=== PATIENT | male | born 1965 | race Caucasian/White ===

== ENCOUNTER → 2023-12-05 | Outpatient (CLI) | payer OTHER | LOC: RAD 14:08 | DX: M19.012 Primary osteoarthritis, left shoulder (principal) ==

== ENCOUNTER 2024-03-13 22:29 | Emergency (ER) | payer OTHER ==
[~2024-03-13] VITALS: Ht 175.3 cm; Wt 81.8 kg
[2024-03-13] MEDS ORDERED: OXYCODONE HCL20 M1 PO (23:02)
[2024-03-13] MEDS ORDERED: DULOXETINE60 MG PO (23:02)
[2024-03-13] MEDS ORDERED: RITALIN 20M20 MG/TAB PO (23:02)
[2024-03-13] MEDS ORDERED: SINEQUAN 1010 MG/CAP PO (23:02)
[2024-03-13] MEDS ORDERED: FOLIC ACID1 MG (23:03)
[2024-03-13] MEDS ORDERED: ROSUVASTATIN CA20 MG PO (23:03)
[2024-03-13] MEDS ORDERED: ASPIRIN E.C. 8181 MG (23:03)
[2024-03-13 23:12] LABS: BASO # 0.01 K/mm3 (0.02-0.10); EOS # 0.12 K/mm3 (0.04-0.40); EOS % 2.4 % (0.0-4.0); HEMATOCRIT 37.4 % (42.0-52.0); HEMOGLOBIN 12.9 g/dL (13.5-18.0); LYMPH# 1.21 K/mm3 (1.50-4.00); MEAN CELL VOLUME 96 fl (78-100); MEAN CORPUSCULAR HEMOGLOBIN 33 pg (27-31); MEAN CORPUSCULAR HGB CONC 35 g/dL (33-37); MEAN PLATELET VOLUME 8.6 fl (7.4-10.4); MONO # 0.64 K/mm3 (0.20-0.80); NEU # 3.03 K/mm3 (1.40-6.50); PLATELET COUNT 166 K/mm3 (130-400); RED BLOOD COUNT 3.88 M/mm3 (4.20-5.60)
[2024-03-13 23:20] LABS: ALBUMIN 3.3 g/dL (3.5-5.0)
[2024-03-13 23:21] LABS: CALCIUM 8.8 mg/dL (8.3-10.5)
[2024-03-13 23:22] LABS: TOTAL PROTEIN 6.7 g/dL (6.4-8.3)
[2024-03-13 23:24] LABS: TOTAL BILIRUBIN 0.9 mg/dL (0.2-1.2)
[2024-03-13 23:36] LABS: URINE APPEARANCE CLOUDY (CLEAR)
[2024-03-13 23:37] LABS: URINE GLUCOSE TRACE (NEGATIVE)
[2024-03-13 23:38] LABS: URINE BILIRUBIN 2+ (NEGATIVE); URINE BLOOD NEGATIVE (NEGATIVE); URINE KETONE TRACE (NEGATIVE); URINE PROTEIN(semi-quant) 3+ (NEGATIVE)
[2024-03-13 23:39] LABS: URINE COLOR AMBER (YELLOW); URINE NITRATE POSITIVE (NEGATIVE)
[2024-03-13 23:45] LABS: URINE LEUKOCYTE ESTERASE NEGATIVE (NEGATIVE)
[2024-03-13 23:46] LABS: URINE MUCUS PRESENT (NOT PRESENT)
[2024-03-14] MEDS ORDERED: levETIRAcetam 1,000 MG in Syringe 1 EACH IV ONE (00:45)
[2024-03-14] MEDS ORDERED: Morphine 4 MG/ML VIAL IV PRN (01:30)
[2024-03-14] MEDS ORDERED: NS 1,000 ML IV SCH (01:30)
[2024-03-14] MEDS ORDERED: Iohexol 350 - 100 ML VIAL IV ONE (03:17)
[2024-03-14] MEDS ORDERED: Ondansetron 4 MG/2 ML VIAL IV ONE (03:30)
[2024-03-14 10:10] VITALS: BP 159/102
== END 2024-03-14 08:28 | disposition short-term general hospital (02) ==
LOC: ED 22:29
PROVIDERS: Family Medicine
DX: R47.1 Dysarthria and anarthria (principal); R56.9 Unspecified convulsions; G89.29 Other chronic pain; K59.00 Constipation, unspecified; Z79.82 Long term (current) use of aspirin; Z79.899 Other long term (current) drug therapy; Z79.891 Long term (current) use of opiate analgesic
CPT/HCPCS: J1953; J2270; J2405; J7030; Q9967

== ENCOUNTER → 2024-04-22 | Outpatient (CLI) | payer OTHER ==
[~2024-04-22] MED LIST: ASPIRIN E.C. 8181 MG; DULOXETINE60 MG PO; FOLIC ACID1 MG; OXYCODONE HCL20 M1 PO; RITALIN 20M20 MG/TAB PO; ROSUVASTATIN CA20 MG PO; SINEQUAN 1010 MG/CAP PO
[2024-04-22 16:33] LABS: HEMATOCRIT 36.2 % (42.0-52.0); HEMOGLOBIN 11.2 g/dL (13.5-18.0); MEAN PLATELET VOLUME 9.9 fl (7.4-10.4); RED BLOOD COUNT 3.2 M/mm3 (4.20-5.60); WHITE BLOOD COUNT 8.7 K/mm3 (4.8-10.8)
[2024-04-22 16:45] LABS: ALBUMIN 2.9 g/dL (3.5-5.0)
[2024-04-22 16:48] LABS: TOTAL PROTEIN 6.4 g/dL (6.4-8.3)
[2024-04-22 16:49] LABS: TOTAL BILIRUBIN 0.3 mg/dL (0.2-1.2)
== END ==
LOC: LAB 16:14
PROVIDERS: Family Medicine
DX: R10.13 Epigastric pain (principal); F10.988 Alcohol use, unspecified with other alcohol-induced disorder

== ENCOUNTER → 2024-05-25 | Outpatient (CLI) | payer OTHER ==
[~2024-05-25] MED LIST changes: +Gadoterate 20 ML VIAL IV ONE
== END ==
LOC: RAD 11:52
DX: N28.89 Other specified disorders of kidney and ureter (principal); K86.2 Cyst of pancreas
CPT/HCPCS: A9575